=== PATIENT | male | born 1945 | race Caucasian/White ===

== ENCOUNTER 2016-10-01 19:16 | Emergency (ER) | payer OTHER ==
[~2016-10-01] VITALS: Ht 172.7 cm; Wt 101.8 kg
[~2016-10-01 19:16] MED LIST: ASPIR-LOW81 MG PO; ASPIRIN325 MG PO; CLONIDINE HCL0.1 MG PO; CLOPIDOGREL75 MG PO; DOXYCYCLINE HY100 M3 PO; ELIQUIS5 MG PO; FUROSEMIDE20 MG PO; GLUCOPHAGE500 MG PO; IMDUR60 MG PO; LEVEMIR100 UNIT/2 SC; LISINOPRIL40 MG PO; LO-DOSE ASPIRIN81 M1 PO; LOPRESSOR100 M1 PO; LOPRESSOR50 MG PO; MELOXICAM7.5 MG PO; METOPROLOL TART50 MG PO; MINIPRESS1 MG PO; NITROSTAT0.4 MG SL; NORVASC10 MG PO; NOVOLOG 10100 UNITS/ SC; PAROXETINE HCL30 MG PO; PRAVACHOL80 MG PO; PRAVASTATIN SOD80 MG PO; PREDNISONE5 MG PO; PRILOSEC20 MG PO; STRESS FORMULA1 EAC8 PO; TAMSULOSIN HCL0.4 MG PO; TRAZODONE HCL50 MG PO; VENTOLIN HFA18 GM IH; WELCHOL625 MG PO
[2016-10-01 20:40] LABS: HEMATOCRIT 34.4 % (38.0-50.0); MCH 28.5 PG (29.0-34.0); MCHC 32.3 G/DL (30.0-36.0); MCV 88.2 FL (86-99); MEAN PLAT.VOLUME 10.9 uM^3 (9.0-12.4); PLATELET COUNT 180 K/uL (156-360); RBC DIS.WIDTH-CV 14.3 % (11.8-14.6); RBC DIS.WIDTH-SD 45.3 % (39-53); WHITE BLOOD COUNT 5.9 K/uL (4.1-10.2)
[2016-10-01 20:44] LABS: CHLORIDE 107 mEq/L (99-109); INTER. NORMALIZED RATIO 1.1; POTASSIUM 4.2 mEq/L (3.7-5.4); PROTHROMBIN TIME 11.6 (9.2-11.2); PTT 30.6 (25-32); SODIUM 139 mEq/L (136-147)
[2016-10-01 20:46] LABS: GLUCOSE 123 mg/dL (70-99)
[2016-10-01 20:47] LABS: ANION GAP 9 MEQ/L (2-14)
[2016-10-01 20:50] LABS: GFR ESTIMATE (CALCULATED) > 59 mL/min/
[2016-10-01 20:51] LABS: UREA NITROGEN (BUN) 23 mg/dL (9-23)
[2016-10-02 00:13] LABS: ADD MIUA? YES; BILIRUBIN NEGATIVE; BLOOD LARGE; COLOR YELLOW ((YELLOW)); GLUCOSE (STRIP) NEGATIVE; KETONES NEGATIVE; LEUKOCYTES NEGATIVE; NITRITE NEGATIVE; PROTEIN (STRIP) 30; SPECIFIC GRAVITY 1.026 (1.000-1.030)
[2016-10-02] MEDS ORDERED: PERCOCET 5/31 TABLET PO (00:38)
[2016-10-02] MEDS ORDERED: VALIUM5 MG PO (00:38)
[2016-10-02] MEDS ORDERED: KEFLEX500 MG PO (00:39)
[2016-10-02 01:07] LABS: BACTERIA NONE SEEN; CASTS NONE SEEN /LPF; CRYSTALS NONE SEEN; EPITHELIAL CELLS RARE; MUCUS NONE SEEN; RED BLOOD CELLS TNTC /HPF (0-5); UCUL ADDED? NO; WHITE BLOOD CELLS RARE /HPF (0-5)
[2016-10-02 01:14] VITALS: BP 138/94
== END 2016-10-02 01:15 | disposition home or self-care (01) ==
LOC: EME 19:16
PROVIDERS: Emergency Medicine
DX: M54.41 Lumbago with sciatica, right side (principal); N20.0 Calculus of kidney; J43.9 Emphysema, unspecified; J44.9 Chronic obstructive pulmonary disease, unspecified; E78.5 Hyperlipidemia, unspecified; I10 Essential (primary) hypertension; E11.9 Type 2 diabetes mellitus without complications; Z79.82 Long term (current) use of aspirin; Z99.81 Dependence on supplemental oxygen; Z87.442 Personal history of urinary calculi; Z88.8 Allergy status to other drugs, medicaments and biological substances
CPT/HCPCS: 72131; 74176; 80048; 81003; 85027; 85610; 85730; 87086; 99281; 99284

== ENCOUNTER 2016-10-14 14:50 | Inpatient (IN) | payer OTHER ==
[~2016-10-14] VITALS: Ht 172.7 cm; Wt 92.8 kg
[~2016-10-14 14:50] MED LIST changes: +KEFLEX500 MG PO; +PERCOCET 5/31 TABLET PO; +VALIUM5 MG PO
[2016-10-14 15:30] LABS: EOSINOPHIL (%) 1.6 % (0-5); EOSINOPHIL COUNT 0.1 K/uL (0-0.3); HEMATOCRIT 34.8 % (38.0-50.0); IMMATURE GRANULOCYTE (%) 0.2 % (0.0-0.7); IMMATURE GRANULOCYTE COUNT 0.2 K/uL; LYMPHOCYTE COUNT 0.8 K/uL (1.0-2.8); MCH 28.4 PG (29.0-34.0); MCHC 32.8 G/DL (30.0-36.0); MCV 86.8 FL (86-99); MEAN PLAT.VOLUME 11.1 uM^3 (9.0-12.4); MONOCYTE (%) 8.7 % (3-12); MONOCYTE COUNT 0.8 K/uL (0-0.8); NEUTROPHIL (%) 79.9 % (45-76); NEUTROPHIL COUNT 7.2 K/uL (1.8-6.4); PLATELET COUNT 221 K/uL (156-360); RBC DIS.WIDTH-CV 14.6 % (11.8-14.6); RBC DIS.WIDTH-SD 45.4 % (39-53); RED BLOOD COUNT 4.01 M/uL (4.00-5.50)
[2016-10-14 15:37] LABS: CHLORIDE 108 mEq/L (99-109); POTASSIUM 4.2 mEq/L (3.7-5.4); SODIUM 139 mEq/L (136-147)
[2016-10-14 15:39] LABS: GLUCOSE 156 mg/dL (70-99)
[2016-10-14 15:41] LABS: ANION GAP 9 MEQ/L (2-14); TOTAL BILIRUBIN 1.3 mg/dL (0.0-1.0)
[2016-10-14 15:43] LABS: ALKALINE PHOSPHATASE 67 IU/L (3-129); GFR ESTIMATE (CALCULATED) 49 mL/min/
[2016-10-14 15:44] LABS: UREA NITROGEN (BUN) 36 mg/dL (9-23)
[2016-10-14 15:50] LABS: TROP-I INTERPRETATION NEGATIVE; TROPONIN-I 0.02 ng/mL (0.0-0.30)
[2016-10-14 15:51] LABS: ADD MIUA? YES; BILIRUBIN NEGATIVE; BLOOD MODERATE; COLOR YELLOW ((YELLOW)); GLUCOSE (STRIP) NEGATIVE; KETONES NEGATIVE; LEUKOCYTES NEGATIVE; NITRITE NEGATIVE; PROTEIN (STRIP) 100; SPECIFIC GRAVITY 1.028 (1.000-1.030)
[2016-10-14 16:00] LABS: INFLUENZA A VIRAL ANTIGEN NEGATIVE; INFLUENZA B VIRAL ANTIGEN NEGATIVE
[2016-10-14 16:24] LABS: BACTERIA RARE; CASTS NONE SEEN /LPF; CRYSTALS NONE SEEN; EPITHELIAL CELLS RARE; MUCUS 1+; WHITE BLOOD CELLS RARE /HPF (0-5)
[2016-10-14 23:28] VITALS: BP 141/96
[2016-10-15] MEDS ORDERED: LEVEMIR100 UNIT/2 SC (00:46)
[2016-10-15] MEDS ORDERED: NITROSTAT0.4 MG SL (00:47)
[2016-10-15] MEDS ORDERED: CALCIUM PO (00:47)
[2016-10-15] MEDS ORDERED: FLONASE16 G1 BOTH NARES (00:47)
[2016-10-15] MEDS ORDERED: VITAMIN E100 UNIT PO (00:48)
[2016-10-15] MEDS ORDERED: FOLIC ACID1 MG PO (00:48)
[2016-10-15] MEDS ORDERED: LIPITOR80 MG PO (00:48)
[2016-10-15] MEDS ORDERED: VITAMIN B-1250 MG PO (00:49)
[2016-10-15] MEDS ORDERED: PROAIR HFA8.5 GM IH (00:49)
[2016-10-15] MEDS ORDERED: EYE DROPS15 M1 BOTH EYES (00:50)
[2016-10-15 03:11] VITALS: BP 139/93
[2016-10-15 08:30] VITALS: BP 159/97
[2016-10-15] MEDS ORDERED: METFORMIN HCL500 MG PO (09:42)
[2016-10-15] MEDS ORDERED: GLUCOTROL5 MG PO (09:42)
[2016-10-15] MEDS ORDERED: TRAMADOL HCL50 MG PO (09:43)
[2016-10-15 11:30] VITALS: BP 111/79
[2016-10-15 11:35] LABS: POINT-OF-CARE METER ID UU13113717
[2016-10-15 16:07] LABS: POINT-OF-CARE METER ID UU14149397
[2016-10-15 16:30] VITALS: BP 117/82
[2016-10-15 19:38] VITALS: BP 111/79
[2016-10-15 21:50] LABS: POINT-OF-CARE METER ID UU13113717
[2016-10-15 23:37] VITALS: BP 113/80
[2016-10-16 05:09] VITALS: BP 130/70
[2016-10-16 07:35] VITALS: BP 126/84
[2016-10-16 11:37] LABS: POINT-OF-CARE METER ID UU14149397
[2016-10-16 11:39] VITALS: BP 125/83
[2016-10-16 15:31] LABS: HEMATOCRIT 30.3 % (38.0-50.0); MCH 28.7 PG (29.0-34.0); MCHC 32.3 G/DL (30.0-36.0); MCV 88.6 FL (86-99); MEAN PLAT.VOLUME 11.5 uM^3 (9.0-12.4); PLATELET COUNT 185 K/uL (156-360); RBC DIS.WIDTH-SD 48.4 % (39-53); RED BLOOD COUNT 3.42 M/uL (4.00-5.50)
[2016-10-16 15:32] LABS: WHITE BLOOD COUNT 11.8 K/uL (4.1-10.2)
[2016-10-16 15:36] LABS: ANION GAP 6 MEQ/L (2-14); CHLORIDE 106 MEQ/L (99-109); POTASSIUM 4.8 MEQ/L (3.7-5.4); SAMPLE HEMOLYSIS CHECK 0; SAMPLE ICTERIC CHECK 0; SAMPLE LIPEMIA CHECK 0; SODIUM 136 MEQ/L (136-147)
[2016-10-16 15:41] LABS: GFR ESTIMATE (CALCULATED) 53 mL/min/; GLUCOSE 135 mg/dL (70-99); UREA NITROGEN (BUN) 50 mg/dL (9-23)
[2016-10-16 16:00] VITALS: BP 100/57
[2016-10-16 16:29] LABS: BASE EXCESS -0.6 mEq/L (-3 to +3); BICARBONATE 25.4 mEq/L (22-26); CARBOXY HGB 0.8 % (0-5); METHEMOGLOBIN 0.9 % (0-1.5); PCO2 47 mm Hg (35-45); pH 7.34 (7.35-7.45)
[2016-10-16 16:30] LABS: COMMENTS - BLOOD GASES A+C+; DEVICE HFNC; O2 FLOW 7 L/MIN; PO2 78 mm Hg (80-100); SITE RR
[2016-10-16 19:43] VITALS: BP 112/69
[2016-10-16 21:47] LABS: POINT-OF-CARE METER ID UU14149397
[2016-10-16 23:42] VITALS: BP 112/75
[2016-10-17 06:00] LABS: HEMATOCRIT 30.8 % (38.0-50.0); MCH 28.7 PG (29.0-34.0); MCHC 32.5 G/DL (30.0-36.0); MCV 88.5 FL (86-99); MEAN PLAT.VOLUME 11.8 uM^3 (9.0-12.4); PLATELET COUNT 177 K/uL (156-360); RBC DIS.WIDTH-CV 14.6 % (11.8-14.6); RBC DIS.WIDTH-SD 47.2 % (39-53); RED BLOOD COUNT 3.48 M/uL (4.00-5.50); WHITE BLOOD COUNT 9.7 K/uL (4.1-10.2)
[2016-10-17 06:23] LABS: ALKALINE PHOSPHATASE 50 IU/L (3-129); ANION GAP 9 MEQ/L (2-14); CHLORIDE 104 MEQ/L (99-109); GFR ESTIMATE (CALCULATED) 58 mL/min/; GLUCOSE 143 mg/dL (70-99); POTASSIUM 4.3 MEQ/L (3.7-5.4); SAMPLE HEMOLYSIS CHECK 0; SAMPLE ICTERIC CHECK 0; SAMPLE LIPEMIA CHECK 0; SODIUM 139 MEQ/L (136-147); TOTAL BILIRUBIN 0.7 MG/DL (0.0-1.0); UREA NITROGEN (BUN) 45 mg/dL (9-23)
[2016-10-17 06:24] LABS: ANION GAP 9 MEQ/L (2-14); CHLORIDE 104 MEQ/L (99-109); GFR ESTIMATE (CALCULATED) 58 mL/min/; GLUCOSE 141 mg/dL (70-99); POTASSIUM 4.5 MEQ/L (3.7-5.4); SAMPLE HEMOLYSIS CHECK 0; SAMPLE ICTERIC CHECK 0; SAMPLE LIPEMIA CHECK 0; SODIUM 138 MEQ/L (136-147); UREA NITROGEN (BUN) 44 mg/dL (9-23)
[2016-10-17 07:45] VITALS: BP 122/83
[2016-10-17 11:22] VITALS: BP 104/68
[2016-10-17 16:01] VITALS: BP 110/70
[2016-10-17 22:33] LABS: POINT-OF-CARE METER ID UU14149397
[2016-10-17 23:26] VITALS: BP 132/80
[2016-10-18 07:30] VITALS: BP 137/79
[2016-10-18 08:16] LABS: BASE EXCESS 2.7 mEq/L (-3 to +3); BICARBONATE 28.4 mEq/L (22-26); CARBOXY HGB 0.5 % (0-5); PCO2 48 mm Hg (35-45); pH 7.38 (7.35-7.45)
[2016-10-18 08:17] LABS: COMMENTS - BLOOD GASES A+C+; DEVICE NC; O2 FLOW 6 L/MIN; PO2 96 mm Hg (80-100); SITE LRA; TOTAL RESP RATE 14 resp/min
[2016-10-18 12:24] LABS: POINT-OF-CARE METER ID UU14149397
[2016-10-18 16:26] LABS: POINT-OF-CARE METER ID UU14149397
[2016-10-18 16:28] VITALS: BP 140/89
[2016-10-18 21:43] LABS: POINT-OF-CARE METER ID UU14149397
[2016-10-19 00:10] VITALS: BP 134/82
[2016-10-19 06:00] LABS: HEMATOCRIT 32.3 % (38.0-50.0); MCH 28.1 PG (29.0-34.0); MCHC 31.9 G/DL (30.0-36.0); MCV 88.3 FL (86-99); MEAN PLAT.VOLUME 11.5 uM^3 (9.0-12.4); PLATELET COUNT 195 K/uL (156-360); RBC DIS.WIDTH-CV 14.7 % (11.8-14.6); RBC DIS.WIDTH-SD 47.2 % (39-53); RED BLOOD COUNT 3.66 M/uL (4.00-5.50); WHITE BLOOD COUNT 7.9 K/uL (4.1-10.2)
[2016-10-19 06:24] LABS: POINT-OF-CARE METER ID UU13113717
[2016-10-19 08:15] VITALS: BP 135/80
[2016-10-19 11:07] LABS: POINT-OF-CARE METER ID UU13113717
[2016-10-19 11:30] VITALS: BP 134/86
[2016-10-19 16:03] LABS: POINT-OF-CARE METER ID UU13113717
[2016-10-19 16:30] VITALS: BP 129/81
[2016-10-19 21:09] LABS: POINT-OF-CARE METER ID UU14149397
[2016-10-20] VITALS: BP 142/90
[2016-10-20 06:13] LABS: EOSINOPHIL (%) 0.1 % (0-5); HEMATOCRIT 31.9 % (38.0-50.0); IMMATURE GRANULOCYTE (%) 0.2 % (0.0-0.7); LYMPHOCYTE COUNT 0.4 K/uL (1.0-2.8); MCH 28.7 PG (29.0-34.0); MCHC 32.3 G/DL (30.0-36.0); MCV 88.9 FL (86-99); MEAN PLAT.VOLUME 11.4 uM^3 (9.0-12.4); MONOCYTE (%) 5.2 % (3-12); MONOCYTE COUNT 0.5 K/uL (0-0.8); NEUTROPHIL (%) 90.3 % (45-76); PLATELET COUNT 190 K/uL (156-360); RBC DIS.WIDTH-CV 14.5 % (11.8-14.6); RBC DIS.WIDTH-SD 46.9 % (39-53); RED BLOOD COUNT 3.59 M/uL (4.00-5.50); WHITE BLOOD COUNT 9.9 K/uL (4.1-10.2)
[2016-10-20 06:37] LABS: ANION GAP 3 MEQ/L (2-14); CHLORIDE 103 MEQ/L (99-109); GFR ESTIMATE (CALCULATED) > 59 mL/min/; GLUCOSE 155 mg/dL (70-99); POTASSIUM 4.6 MEQ/L (3.7-5.4); SAMPLE HEMOLYSIS CHECK 0; SAMPLE ICTERIC CHECK 0; SAMPLE LIPEMIA CHECK 0; SODIUM 135 MEQ/L (136-147); UREA NITROGEN (BUN) 32 mg/dL (9-23)
[2016-10-20 07:50] VITALS: BP 133/91
[2016-10-20 11:36] LABS: POINT-OF-CARE METER ID UU14149397
[2016-10-20 16:53] VITALS: BP 127/75
[2016-10-20 16:56] LABS: POINT-OF-CARE METER ID UU14149397
[2016-10-20 21:49] LABS: POINT-OF-CARE METER ID UU14149397
[2016-10-20 23:27] VITALS: BP 128/79
[2016-10-21 08:00] VITALS: BP 138/80
[2016-10-21 11:31] LABS: POINT-OF-CARE METER ID UU14149397
[2016-10-21] MEDS ORDERED: PREDNISONE10 MG PO (13:29)
[2016-10-21] MEDS ORDERED: AMLODIPINE BESY10 MG PO (13:29)
[2016-10-21] MEDS ORDERED: LEVOFLOXACIN750 MG PO (13:29)
[2016-10-21] MEDS ORDERED: LISINOPRIL40 MG PO (13:29)
[2016-10-21] MEDS ORDERED: FUROSEMIDE20 MG PO (13:29)
[2016-10-21] MEDS ORDERED: ADVAIR HFA120 INHALA IH (13:29)
== END 2016-10-21 14:59 | disposition home or self-care (01) | DRG 190 ==
LOC: EME 14:50 → EDOF 21:20 → 3EAST 21:20
PROVIDERS: Emergency Medicine; Family Medicine; Hospitalist; Internal Medicine
PROC: 5A09357 Assistance with Respiratory Ventilation, Less than 24 Consecutive Hours, Continuous Positive Airway Pressure (ICD-10-PCS; principal; 2016-10-14)
DX: J44.0 Chronic obstructive pulmonary disease with (acute) lower respiratory infection (principal); J15.9 Unspecified bacterial pneumonia; J96.01 Acute respiratory failure with hypoxia; I13.0 Hypertensive heart and chronic kidney disease with heart failure and stage 1 through stage 4 chronic kidney disease, or unspecified chronic kidney disease; I50.41 Acute combined systolic (congestive) and diastolic (congestive) heart failure; E11.22 Type 2 diabetes mellitus with diabetic chronic kidney disease; N18.3 Chronic kidney disease, stage 3 (moderate); J44.1 Chronic obstructive pulmonary disease with (acute) exacerbation; G47.33 Obstructive sleep apnea (adult) (pediatric); E78.5 Hyperlipidemia, unspecified; E66.9 Obesity, unspecified; I25.10 Atherosclerotic heart disease of native coronary artery without angina pectoris; F32.9 Major depressive disorder, single episode, unspecified; F41.9 Anxiety disorder, unspecified; E78.1 Pure hyperglyceridemia; Z86.73 Personal history of transient ischemic attack (TIA), and cerebral infarction without residual deficits; Z87.891 Personal history of nicotine dependence; Z68.31 Body mass index [BMI] 31.0-31.9, adult; Z79.4 Long term (current) use of insulin; Z79.82 Long term (current) use of aspirin
CPT/HCPCS: 36600; 71010; 71020; 71260; 74230; 80048; 80053; 81003; 82803; 82948; 83605; 83880; 84484; 85025; 85027; 87040; 87070; 87205; 87449; 87502; 92611 GN; 93005; 93306; 94640; 94640 76; 94644; 94660; 94760; 94799; 99202; 99281; 99285; J0456; J0692; J1650; J1815; J1940; J2930; J7050; J7512

== ENCOUNTER 2017-03-02 18:57 | Observation (INO) | payer OTHER ==
[~2017-03-02] VITALS: Ht 172.7 cm; Wt 93.1 kg
[~2017-03-02 18:57] MED LIST changes: +ADVAIR HFA120 INHALA IH; +AMLODIPINE BESY10 MG PO; +CALCIUM PO; +EYE DROPS15 M1 BOTH EYES; +FLONASE16 G1 BOTH NARES; +FOLIC ACID1 MG PO; +GLUCOTROL5 MG PO; +LEVOFLOXACIN750 MG PO; +LIPITOR80 MG PO; +METFORMIN HCL500 MG PO; +PREDNISONE10 MG PO; +PROAIR HFA8.5 GM IH; +TRAMADOL HCL50 MG PO; +VITAMIN B-1250 MG PO; +VITAMIN E100 UNIT PO
[2017-03-02 19:40] LABS: HEMATOCRIT 32.9 % (38.0-50.0); MCH 28.8 PG (29.0-34.0); MCHC 32.2 G/DL (30.0-36.0); MCV 89.4 FL (86-99); MEAN PLAT.VOLUME 10.3 uM^3 (9.0-12.4); PLATELET COUNT 176 K/uL (156-360); RBC DIS.WIDTH-CV 15.1 % (11.8-14.6); RBC DIS.WIDTH-SD 48.9 % (39-53); RED BLOOD COUNT 3.68 M/uL (4.00-5.50); WHITE BLOOD COUNT 7.6 K/uL (4.1-10.2)
[2017-03-02 19:50] LABS: CHLORIDE 103 mEq/L (99-109); SODIUM 137 mEq/L (136-147)
[2017-03-02 19:51] LABS: GLUCOSE 109 mg/dL (70-99)
[2017-03-02 19:53] LABS: ANION GAP 10 MEQ/L (2-14)
[2017-03-02 19:55] LABS: GFR ESTIMATE (CALCULATED) 33 mL/min/
[2017-03-02 19:56] LABS: UREA NITROGEN (BUN) 30 mg/dL (9-23)
[2017-03-02 20:01] LABS: TROP-I INTERPRETATION NEGATIVE; TROPONIN-I 0.02 ng/mL (0.0-0.30)
[2017-03-02 21:34] LABS: D-DIMER ELISA 0.48 mg/L FEU (< 0.57)
[2017-03-02] MEDS ORDERED: FUROSEMIDE20 MG PO (22:18)
[2017-03-03] VITALS: BP 119/74
[2017-03-03 01:39] LABS: TROP-I INTERPRETATION NEGATIVE; TROPONIN-I 0.01 ng/mL (0.0-0.30)
[2017-03-03 04:00] VITALS: BP 109/68
[2017-03-03 08:31] LABS: ALKALINE PHOSPHATASE 72 IU/L (3-129); ANION GAP 9 MEQ/L (2-14); CHLORIDE 105 MEQ/L (99-109); GLUCOSE 127 mg/dL (70-99); HEMATOCRIT 31.9 % (38.0-50.0); MCH 29.8 PG (29.0-34.0); MCHC 33.2 G/DL (30.0-36.0); MCV 89.6 FL (86-99); MEAN PLAT.VOLUME 10.5 uM^3 (9.0-12.4); PLATELET COUNT 159 K/uL (156-360); POTASSIUM 3.7 MEQ/L (3.7-5.4); RED BLOOD COUNT 3.56 M/uL (4.00-5.50); SAMPLE HEMOLYSIS CHECK 0; SAMPLE ICTERIC CHECK 0; SAMPLE LIPEMIA CHECK 0; SODIUM 141 MEQ/L (136-147); TOTAL BILIRUBIN 0.5 MG/DL (0.0-1.0); UREA NITROGEN (BUN) 25 mg/dL (9-23); WHITE BLOOD COUNT 5.2 K/uL (4.1-10.2)
[2017-03-03 08:33] LABS: TROP-I INTERPRETATION NEGATIVE; TROPONIN-I 0.02 ng/mL (0.0-0.30)
[2017-03-03 08:40] VITALS: BP 122/77
[2017-03-03 08:42] LABS: GFR ESTIMATE (CALCULATED) 46 mL/min/
[2017-03-03 11:10] VITALS: BP 127/74
== END 2017-03-03 15:39 | disposition home or self-care (01) ==
LOC: EME 18:57 → EDOF 21:46 → 5WEST 23:25
PROVIDERS: Emergency Medicine; Internal Medicine
DX: R07.89 Other chest pain (principal); N17.9 Acute kidney failure, unspecified; I13.0 Hypertensive heart and chronic kidney disease with heart failure and stage 1 through stage 4 chronic kidney disease, or unspecified chronic kidney disease; N18.3 Chronic kidney disease, stage 3 (moderate); I50.9 Heart failure, unspecified; E11.22 Type 2 diabetes mellitus with diabetic chronic kidney disease; R42 Dizziness and giddiness; S96.912A Strain of unspecified muscle and tendon at ankle and foot level, left foot, initial encounter; W19.XXXA Unspecified fall, initial encounter; Y92.019 Unspecified place in single-family (private) house as the place of occurrence of the external cause; I25.10 Atherosclerotic heart disease of native coronary artery without angina pectoris; D64.9 Anemia, unspecified; K21.9 Gastro-esophageal reflux disease without esophagitis; J44.9 Chronic obstructive pulmonary disease, unspecified; G47.33 Obstructive sleep apnea (adult) (pediatric); Z91.19 Patient's noncompliance with other medical treatment and regimen; E78.5 Hyperlipidemia, unspecified; I25.2 Old myocardial infarction; I34.0 Nonrheumatic mitral (valve) insufficiency; I27.2 Other secondary pulmonary hypertension; E78.00 Pure hypercholesterolemia, unspecified; Z86.718 Personal history of other venous thrombosis and embolism; Z79.01 Long term (current) use of anticoagulants
CPT/HCPCS: 71020; 73630; 80048; 80053; 84484; 85027; 85379; 93005; 94640; 99202; 99281; 99284; G0378; J7030